=== PATIENT | female | born 1940 | race Caucasian/White ===

== ENCOUNTER 2017-10-13 15:04 | Emergency (ER) | payer MEDICARE ==
--- NOTE | 2017-10-13 15:24 | ER Document Report ---
ED General - General Chief Complaint: Edema Stated Complaint: SKIN PROBLEM Time Seen by Provider: 10/13/17 15:24 Mode of Arrival: Ambulatory Information source: Patient, Relative Notes: 77-year-old female with a history of COPD, previous lung cancer, dementia presents from home with her daughter who is concerned with a blister on her left lower extremity. Daughter states that they noticed this today. She denies any recent falls or injuries. Daughter denies any recent illnesses. Patient is on home oxygen but due to her dementia does not wear it as she should. Daughter has been in discussion with her primary care physician regarding long-term care in a long-term facility due to declining health and increasing dementia.Upon my exam patient is alert and oriented and appears comfortable. She denies any fever, chills, chest pain, shortness of breath, leg pain, recent falls. TRAVEL OUTSIDE OF THE [place] IN LAST 30 DAYS: No - HPI Onset: Just prior to arrival Onset/Duration: Sudden Quality of pain: No pain Associated symptoms: Shortness of breath - Chronic shortness of breath. denies : Fever Similar symptoms previously: No Recently seen / treated by doctor: Yes - Primary care physician Dr. Baez Past Medical History - Social History Smoking Status: Former Smoker Frequency of alcohol use: None Drug Abuse: None Lives with: Family Family History: Reviewed & Not Pertinent Patient has suicidal ideation: No Pulmonary Medical History: Reports: Hx COPD Neurological Medical History: Reports: Other - Dementia Malignancy Medical History: Reports: Hx Lung Cancer Review of Systems - Review of Systems Constitutional: denies: Fever, Weakness EENT: No symptoms reported Cardiovascular: denies: Chest pain, Palpitations Respiratory: Short of breath. denies: Cough Gastrointestinal: denies: Abdominal pain, Diarrhea Genitourinary: denies: Dysuria Skin: Other - Blister left lower extremity Neurological/Psychological: Dementia Physical Exam - Vital signs Vitals: Temp Pulse Resp BP Pulse Ox 97.9 F 94 24 H 145/77 H 82 L 10/13/17 15:11 10/13/17 15:11 10/13/17 15:11 10/13/17 15:11 10/13/17 15:11 Interpretation: Normal, Hypoxic - General General appearance: Appears well, Alert In distress: None - HEENT Head: Normocephalic, Atraumatic Eyes: Normal Extraocular movements intact: Yes Pupils: PERRL Mucous membranes: Dry - Respiratory Respiratory status: No respiratory distress Chest status: Nontender Breath sounds: Normal Chest palpation: Normal - Cardiovascular Rhythm: Regular Heart sounds: Normal auscultation Murmur: No Pulses: Normal: Radial, Dorsalis pedis Normal capillary refill: Yes - Extremities General upper extremity: Normal inspection, Nontender, Normal color, Normal ROM , Normal temperature General lower extremity: Normal inspection, Nontender, Normal color, Normal ROM , Normal temperature, Normal weight bearing, Other - 4 x 4 centimeter clear blister. No associated tenderness. Mild erythema of the lower extremities bilaterally. No warmth,No purulent discharge... No: Aleida's sign - Neurological Neuro grossly intact: Yes Cognition: Normal Orientation: AAOx4 Cong Coma Scale Eye Opening: Spontaneous Sayre Coma Scale Verbal: Oriented Sayre Coma Scale Motor: Obeys Commands Sayre Coma Scale Total: 15 Speech: Normal Cranial nerves: Normal Cerebellar coordination: Normal Motor strength normal: LUE, RUE, LLE, RLE Additional motor exam normals: Equal silver cleaner Sensory: Normal - Skin Skin Temperature: Warm Skin Moisture: Dry Skin Color: Normal Skin Turgor: Tenting Skin irregularity: Erythema, other - blister. negative: Decubitus ulcer Irregularity with: Scaling, Weeping. negative: Tenderness, Warmth Course - Re-evaluation Re-evalutation: 10/13/17 18:50 On reevaluation patient is resting comfortably. I did discuss findings of urinary tract infection and mildly Dehydration with the daughter and the patient. Patient will receive Bactrim prior to discharge. 10/13/17 22:13 77-year-old female with a history of COPD and dementia presents with her daughter who is concerned for a new blister on her left lower extremity. Upon arrival vitals were reviewed. Patient is hypoxic but not wearing her home oxygen. Patient does not appear toxic but she does appear mildly dehydrated. Patient's CODE STATUS was discussed and daughter states she is a DNR. Daughter also states that she has been in talks with the patient's primary care physician regarding goals of care and long-term care in a long-term facility. She has an upcoming appointment with a palliative care doctor regarding this. Daughter admits that the patient has poor p.o. intake. Findings include a urinalysis consistent with urinary tract infection. X-ray of the left lower extremity and chest x-ray were obtained showed no acute process. Blister of the left lower extremity is not hemorrhagic. There is no associated tenderness. There is no warmth. There are skin changes secondary to venous stasis. Patient received Bactrim during her ED course as well as IV fluids. Blister was dressed. Patient was discharged home in stable condition with a prescription for Bactrim and recommendations to the daughter to encourage p.o. fluids. Laboratory 10/13/17 10/13/17 17:00 18:14 Sodium 143.3 Potassium 4.3 Chloride 100 Carbon Dioxide 35 H Anion Gap 8 BUN 34 H Creatinine 0.77 Est GFR ( Amer) > 60 Est GFR (Non-Af Amer) > 60 Glucose 102 Calcium 11.0 H Urine Color VERONA Urine Appearance TURBID Urine pH 9.0 Ur Specific Darrow 1.018 Urine Protein >=500 H Urine Glucose (UA) NEGATIVE Urine Ketones 20 H Urine Blood NEGATIVE Urine Nitrite NEGATIVE Urine Bilirubin NEGATIVE Urine Urobilinogen NEGATIVE Ur Leukocyte Esterase MODERATE H Urine WBC (Auto) 4 Urine RBC (Auto) 32 Urine Bacteria (Auto) 1+ Squamous Epi Cells Auto 3 Urine Mucus (Auto) RARE Urine Ascorbic Acid NEGATIVE Chest X-Ray 10/13/17 15:46 IMPRESSION: 1. Small left pleural effusion with left basilar airspace opacity , may represent atelectasis or pneumonia. 2. Known right suprahilar mass. 3. Emphysema. Tibia/Fibula X-Ray 10/13/17 15:46 IMPRESSION: Diffuse soft tissue swelling. No radiographic evidence for acute fracture. Chondrocalcinosis at the left knee. - Vital Signs Vital signs: Temp Pulse Resp BP Pulse Ox 97.9 F 94 21 H 142/93 H 96 10/13/17 15:11 10/13/17 15:11 10/13/17 19:19 10/13/17 19:19 10/13/17 19:19 - Laboratory Result Diagrams: 10/13/17 17:00 Laboratory results interpreted by me: 10/13/17 10/13/17 17:00 18:14 Carbon Dioxide 35 H BUN 34 H Calcium 11.0 H Urine Protein >=500 H Urine Ketones 20 H Ur Leukocyte Esterase MODERATE H Discharge - Discharge Clinical Impression: UTI (urinary tract infection), Dehydration, COPD (chronic obstructive pulmonary disease), Hypoxia Condition: Fair Disposition: HOME, SELF-CARE Instructions: Dehydration ([facility]), Trimethoprim-Sulfa ([facility]), Urinary Tract Infection ([facility]) Prescriptions: Sulfamethoxazole/Trimethoprim [Bactrim Ds Tablet] 1 each PO BID 5 Days #10 tablet Referrals: HEATHER BAEZ MD [ACTIVE STAFF] - Follow up in 3-5 days (Follow-up urinary tract infection)
[2017-10-13] MEDS ORDERED: NORMAL SALINE 500 ML IV ONE (15:47)
[2017-10-13] MEDS ORDERED: IPRATROPIUM/ALBUTEROL 0.5-2.5 MG/3 ML AMPUL NEB ONE (15:47)
--- NOTE | 2017-10-13 16:53 | RADIOLOGY REPORT (SQ) ---
EXAM DESCRIPTION: TIBIA FIBULA LEFT COMPLETED DATE/TIME: 10/13/2017 4:33 pm REASON FOR STUDY: EDEMA. Redness. COMPARISON: None. NUMBER OF VIEWS: Two views. TECHNIQUE: Two radiographic images acquired of the left tibia and fibula to include the knee and ank le in at least one projection. LIMITATIONS: None. FINDINGS: MINERALIZATION: Osteopenia. BONES: No acute fracture or dislocation. Degenerative changes with chondrocalcinosis at the left kne e. SOFT TISSUES: There is diffuse soft tissue swelling. No radiopaque foreign body. IMPRESSION: Diffuse soft tissue swelling. No radiographic evidence for acute fracture. Chondrocalc inosis at the left knee. TECHNICAL DOCUMENTATION: JOB ID: [id number] 2010 [employer]- All Rights Reserved Reading location - IP/workstation name: [email or web address]
--- NOTE | 2017-10-13 16:59 | RADIOLOGY REPORT (SQ) ---
EXAM DESCRIPTION: CHEST PA/LAT COMPLETED DATE/TIME: 10/13/2017 4:33 pm REASON FOR STUDY: sob COMPARISON: CT chest performed at [facility] on 11/24/2015, 11/29/2016. EXAM PARAMETERS: NUMBER OF VIEWS: two views TECHNIQUE: Digital Frontal and Lateral radiographic views of the chest acquired. RADIATION DOSE: NA LIMITATIONS: none FINDINGS: LUNGS AND PLEURA: There is a small left pleural effusion with left basilar airspace opacit y. No pneumothorax. Hyperlucent lungs are suggestive of emphysema. MEDIASTINUM AND HILAR STRUCTURES: Known right suprahilar mass. HEART AND VASCULAR STRUCTURES: Heart normal size. No evidence for failure. BONES: No acute findings. HARDWARE: None in the chest. IMPRESSION: 1. Small left pleural effusion with left basilar airspace opacity, may represent atelec tasis or pneumonia. 2. Known right suprahilar mass. 3. Emphysema. TECHNICAL DOCUMENTATION: JOB ID: [id number] 2010 [id number]- All Rights Reserved Reading location - IP/workstation name: [email or web address]
[2017-10-13 17:34] LABS: ANION GAP 8 (5-19); BLOOD UREA NITROGEN 34 mg/dL (7-20); CARBON DIOXIDE 35 mmol/L (22-30); CHLORIDE 100 mmol/L (98-107); GLUCOSE 102 mg/dL (75-110); POTASSIUM 4.3 mmol/L (3.6-5.0); SODIUM 143.3 mmol/L (137-145)
[2017-10-13 18:38] LABS: APPEARANCE,URINE TURBID; BILIRUBIN,URINE NEGATIVE (NEGATIVE); COLOR,URINE AMBER; GLUCOSE, URINE NEGATIVE (NEGATIVE); KETONES,URINE 20 mg/dL (NEGATIVE); LEUKOCYTE ESTERASE,URINE MODERATE (NEGATIVE); NITRITE,URINE NEGATIVE (NEGATIVE); PROTEIN,URINE >=500 mg/dL (NEGATIVE); URINE SPECIFIC GRAVITY 1.018; UROBILINOGEN,URINE NEGATIVE mg/dL (<2.0)
[2017-10-13] MEDS ORDERED: SULFAMETHOXAZOLE/TRIMETHOPRIM 800-160 MG TABLET PO ONE (18:49)
[2017-10-13 19:42] VITALS: BP 143/90
== END 2017-10-13 19:42 | disposition home or self-care (01) ==
LOC: ER 15:04
DX: F03.90 Unspecified dementia, unspecified severity, without behavioral disturbance, psychotic disturbance, mood disturbance, and anxiety (principal); N39.0 Urinary tract infection, site not specified; E86.0 Dehydration; R09.02 Hypoxemia; L98.9 Disorder of the skin and subcutaneous tissue, unspecified; J44.9 Chronic obstructive pulmonary disease, unspecified
CPT/HCPCS: 94640; 99285; 36415; 80048; 81001; 71046; 73590; A9270 ×2; J7040; J7620

== ENCOUNTER 2017-10-15 15:26 | Inpatient (IN) | payer MEDICARE, MEDICAID ==
--- NOTE | 2017-10-15 15:49 | ER Document Report ---
ED Skin Rash/Insect Bite/Abscs - General Chief Complaint: Skin Sore(s) Stated Complaint: BLISTER UNDER EYE Time Seen by Provider: 10/15/17 15:39 Mode of Arrival: Medic Information source: Relative Notes: Patient is a 77-year-old female with COPD who presents to the ER from home where she lives with her daughter for weakness, not eating over the last 3-4 days. Patient has been on Bactrim for approximately 2 days per daughter for urinary tract infection, but daughter states that her urine still smells very strong. Patient also has blisters to the left lower leg that she was seen for here a couple days ago and now today blisters to the underneath of her eyes and her eyelids bilaterally. Patient has no history of congestive heart failure per daughter but does have a history of some mild swelling to her lower legs for "venous insufficiency" per daughter.. Patient is usually on 3 L of oxygen at home due to her COPD. Daughter states that the swelling to both feet is worse than usual TRAVEL OUTSIDE OF THE [place] IN LAST 30 DAYS: No - Related Data Allergies/Adverse Reactions: No Known Allergies Allergy (Verified 10/15/17 15:35) Past Medical History - General Information source: Patient - Social History Smoking Status: Unknown if Ever Smoked Family History: Reviewed & Not Pertinent Patient has suicidal ideation: No Patient has homicidal ideation: No Pulmonary Medical History: Reports: Hx COPD Renal/ Medical History: Denies: Hx Peritoneal Dialysis Malignancy Medical History: Reports: Hx Lung Cancer Past Surgical History: Reports: Hx Hysterectomy Review of Systems - Review of Systems Constitutional: No symptoms reported EENT: No symptoms reported Cardiovascular: No symptoms reported Respiratory: No symptoms reported Gastrointestinal: No symptoms reported Genitourinary: See HPI Female Genitourinary: No symptoms reported Musculoskeletal: No symptoms reported Skin: See HPI Hematologic/Lymphatic: No symptoms reported Neurological/Psychological: See HPI Physical Exam - Vital signs Vitals: Temp Pulse Resp BP Pulse Ox 98.2 F 105 H 20 136/73 H 93 10/15/17 15:34 10/15/17 15:34 10/15/17 15:34 10/15/17 15:34 10/15/17 15:34 - Notes Notes: PHYSICAL EXAMINATION: GENERAL: Elderly, demented, with lethargic appearing, but in no acute distress. HEAD: Atraumatic, normocephalic. EYES: Pupils equal round and reactive to light, extraocular movements intact, sclera anicteric, conjunctiva are normal. NECK: Normal range of motion, supple without lymphadenopathy LUNGS: CTAB and equal. No wheezes rales or rhonchi. HEART: Regular rate and rhythm without murmurs ABDOMEN: Soft, mild suprapubic tenderness. No guarding, no rebound BACK: no vertebral tenderness, normal ROM GI/: no CVA tenderness EXTREMITIES: Normal range of motion, 1+ pitting edema bilateral lower extremities. No cyanosis. NEUROLOGICAL: Patient does not cooperate, will not stay awake PSYCH: Will not stay awake, demented SKIN: Warm, Dry, normal turgor, darkened discoloration to bilateral lower extremities, large fluid-filled blister to the left dorsal lower extremity, small skin tear proximal to that Course - Re-evaluation Re-evalutation: 10/15/17 18:30 Pt was not altered at first, mentating normally and answering questions appropriately per myself and daughter. throughout the stay, pt became more lethargic and now Patient will not stay awake here although she has normal vital signs and is afebrile she has a large urinary tract infection with greater than 182 white blood cells and leukocytes. Patient also has a BNP of over 2000 with no history of heart failure. Daughter states that she has not been eating or drinking at home and is very tired, not wanting to stay awake which is unlike her. At this time patient was initiated with Dr. Lynne to be admitted. Awaiting callback from Dr. Collins for confirmation of admission. 10/15/17 19:12 10/15/17 19:31 Dr. Collins agrees to admit at this time. wants ABG. 10/16/17 20:44 - Vital Signs Vital signs: Temp Pulse Resp BP Pulse Ox 98.2 F 103 H 16 109/59 L 84 L 10/16/17 16:37 10/16/17 19:44 10/16/17 19:44 10/16/17 16:37 10/16/17 16:37 - Laboratory Result Diagrams: 10/16/17 04:40 10/16/17 04:40 Laboratory results interpreted by me: 10/15/17 10/15/17 10/15/17 15:59 15:59 15:59 RBC 6.30 H Hgb 18.5 H Hct 57.0 H RDW 15.2 H Seg Neutrophils % 80.5 H Lymphocytes % 9.5 L Carbon Dioxide 32 H BUN 43 H Calcium 11.4 H NT-Pro-B Natriuret Pep 2070 H Total Protein 5.9 L Urine Protein Urine Ketones Urine Blood Urine Urobilinogen Ur Leukocyte Esterase 10/15/17 17:00 RBC Hgb Hct RDW Seg Neutrophils % Lymphocytes % Carbon Dioxide BUN Calcium NT-Pro-B Natriuret Pep Total Protein Urine Protein >=500 H Urine Ketones 20 H Urine Blood MODERATE H Urine Urobilinogen 2.0 H Ur Leukocyte Esterase LARGE H Discharge - Discharge Clinical Impression: UTI (urinary tract infection), Dehydration CHF (congestive heart failure) Qualifiers: Heart failure type: unspecified Heart failure chronicity: acute Qualified Code( s): I50.9 - Heart failure, unspecified Condition: Stable Disposition: ADMITTED INPATIENT Admitting Provider: Hospitalist - [facility] Unit Admitted: Telemetry
[2017-10-15 16:13] LABS: ABSOLUTE BASOPHILS # (AUTO) 0.1 10^3/uL (0.0-0.2); ABSOLUTE LYMPHOCYTES (AUTO) 0.8 10^3/uL (0.5-4.7); ABSOLUTE MONOCYTES (AUTO) 0.8 10^3/uL (0.1-1.4); ABSOLUTE NEUT (AUTO) 6.9 10^3/uL (1.7-8.2); BASOPHILS % (AUTO) 0.7 % (0-2); HEMOGLOBIN 18.5 g/dL (12.0-15.5); LYMPHOCYTES % (AUTO) 9.5 % (13-45); MEAN CORPUSCULAR HEMOGLOBIN 29.4 pg (27.0-33.4); MEAN CORPUSCULAR HGB CONC 32.5 g/dL (32.0-36.0); MEAN CORPUSCULAR VOLUME 91 fl (80-97); MONOCYTES % (AUTO) 9.3 % (3-13); PLATELET COUNT 183 10^3/uL (150-450); RED CELL DISTRIBUTION WIDTH 15.2 % (11.5-14.0); SEGMENTED NEUTROPHILS % (AUTO) 80.5 % (42-78); TOTAL CELLS COUNTED % (AUTO) 100 %; WHITE BLOOD COUNT 8.6 10^3/uL (4.0-10.5)
[2017-10-15 16:31] LABS: ALANINE AMINOTRANSFERASE 37 U/L (9-52); ALBUMIN 3.6 g/dL (3.5-5.0); ALKALINE PHOSPHATASE 65 U/L (38-126); ANION GAP 9 (5-19); ASPARTATE AMINO TRANSFERASE 23 U/L (14-36); BILIRUBIN,DIRECT 0.4 mg/dL (0.0-0.4); BILIRUBIN,TOTAL 0.7 mg/dL (0.2-1.3); BLOOD UREA NITROGEN 43 mg/dL (7-20); CALCIUM 11.4 mg/dL (8.4-10.2); CARBON DIOXIDE 32 mmol/L (22-30); CHLORIDE 103 mmol/L (98-107); GLUCOSE 87 mg/dL (75-110); POTASSIUM 4.8 mmol/L (3.6-5.0); SODIUM 144.4 mmol/L (137-145); TOTAL PROTEIN 5.9 g/dL (6.3-8.2)
--- NOTE | 2017-10-15 16:31 | RADIOLOGY REPORT (SQ) ---
EXAM DESCRIPTION: CHEST SINGLE VIEW COMPLETED DATE/TIME: 10/15/2017 4:07 pm REASON FOR STUDY: chf? sob COMPARISON: 10/13/2017 EXAM PARAMETERS: NUMBER OF VIEWS: One view. TECHNIQUE: Single frontal radiographic view of the chest acquired. RADIATION DOSE: NA LIMITATIONS: None. FINDINGS: LUNGS AND PLEURA: The lungs are hyperexpanded. Chronic changes seen in the lung bases. S mall pleural effusions are present. There is a known suprahilar mass on the right. MEDIASTINUM AND HILAR STRUCTURES: No masses. Contour normal. HEART AND VASCULAR STRUCTURES: Heart normal in size. Normal vasculature. BONES: No acute findings. HARDWARE: None in the chest. OTHER: No other significant finding. IMPRESSION: Lung changes with a known right suprahilar mass and with small bilateral pleural effusio ns. No parminder CHF TECHNICAL DOCUMENTATION: JOB ID: [id number] [employer]- All Rights Reserved Reading location - IP/workstation name: [email or web address]
[2017-10-15 17:42] LABS: APPEARANCE,URINE TURBID; BILIRUBIN,URINE NEGATIVE (NEGATIVE); COLOR,URINE YELLOW; GLUCOSE, URINE NEGATIVE (NEGATIVE); KETONES,URINE 20 mg/dL (NEGATIVE); LEUKOCYTE ESTERASE,URINE LARGE (NEGATIVE); NITRITE,URINE NEGATIVE (NEGATIVE); PROTEIN,URINE >=500 mg/dL (NEGATIVE); URINE SPECIFIC GRAVITY 1.015
[2017-10-15] MEDS ORDERED: CIPROFLOXACIN HCL 500 MG TABLET PO ONE (18:13)
[2017-10-15] MEDS ORDERED: SILVER SULFADIAZINE 1% CREAM 400 GM TP ONE (18:13)
[2017-10-15] MEDS ORDERED: FUROSEMIDE 20 MG TABLET PO ONE (18:20)
[2017-10-15] MEDS ORDERED: CEFTRIAXONE INJ 1000 MG VIAL IV ONE (18:30)
[2017-10-15] MEDS ORDERED: NORMAL SALINE 1000 ML 500 ML IV ONE (18:34)
[2017-10-15] MEDS ORDERED: IPRATROPIUM/ALBUTEROL 0.5-2.5 MG/3 ML AMPUL NEB PRN (19:30)
[2017-10-15] MEDS ORDERED: MAG HYDROX/AL HYDROX/SIMETH SUSP 30 ML UDCUP PO PRN (19:30)
[2017-10-15] MEDS ORDERED: ACETAMINOPHEN 325 MG TABLET PO PRN (19:30)
[2017-10-15] MEDS ORDERED: ZOLEDRONIC ACID 5 MG/100 ML BOTTLE IV ONE (23:14)
[2017-10-15 23:19] LABS: ARTERIAL BLOOD BASE EXCESS -2.5 mmol/L; ARTERIAL BLOOD H2CO3 2.95 mmol/L (1.05-1.35); ARTERIAL BLOOD HCO3 30.9 mmol/L (20-26); ARTERIAL BLOOD O2 SATURATION 92.2 % (94-98); ARTERIAL BLOOD PO2 85.9 mmHg (80-100); ARTERIAL BLOOD TOTAL CO2 33.9 mmol/L (21-25)
[2017-10-15 23:24] LABS: ARTERIAL BLOOD PH 7.12 (7.35-7.45)
[2017-10-15 23:25] LABS: ARTERIAL BLOOD FIO2 4L
[2017-10-15] MEDS ORDERED: ZOLEDRONIC ACID/MANNITOL/WATER 4 MG/100 ML INFUS..BTL IV ONE ×2 (23:30→23:48)
[2017-10-16] MEDS: NORMAL SALINE 1000 ML 1,000 ML IV PRN ×2 (00:21→06:35)
[2017-10-16] MEDS: HEPARIN SOD (PORCINE) 5,000 UNIT/ML 1 ML SYRINGE SUBCUT SCH ×4 (00:23→21:52)
[2017-10-16] MEDS: IPRATROPIUM/ALBUTEROL 0.5-2.5 MG/3 ML AMPUL NEB SCH ×3 (00:37→19:44)
--- NOTE | 2017-10-16 04:35 | PDOC H&P ---
History of Present Illness Admission Date/PCP: 10/15/17 20:01 Patient complains of: Altered mental status History of Present Illness: JOSE WINKLRE is a 77 year old female with a past medical history of remote lung cancer, COPD, venous stasis, dementia and recent UTI receiving Bactrim. Patient presents with 12 hours of periorbital edema after the patient is found by her daughter to be seated on a chair leaning forward with her head down for hours. Patient was seen in the emergency room 2 days ago for altered mental status of a 4 day duration. Daughter states her mother will awaken for seconds only returning to a sleeping state. In the emergency room she is found to have an elevated bicarb suggesting respiratory acidosis, hypercalcemia, and pyuria without leukocytosis. A discussion with the ER provider request arterial blood gas to evaluate for hypercapnia and BiPAP. The patient is found on the floor completely and utterly unresponsive, BiPAP was initiated notable for a PCO2 of 98. Prolonged discussion with the patient's daughter regarding poor prognosis results in DNR status. Daughter denies fever, nausea vomiting or diarrhea. Past Medical History Cardiac Medical History: Reports: Hypertension Pulmonary Medical History: Reports: Chronic Obstructive Pulmonary Disease (COPD) EENT Medical History: Reports: None Neurological Medical History: Reports: None Endocrine Medical History: Reports: Other - Hypercalcemia Renal/ Medical History: Reports: None Malignancy Medical History: Reports: Lung Cancer - Unclear current status GI Medical History: Reports: None Musculoskeltal Medical History: Reports: Other - Patient has not walked for days otherwise requires hand-held assist 2 Skin Medical History: Reports: Other - Bilateral venous stasis Psychiatric Medical History: Reports: Dementia Traumatic Medical History: Reports: None Hematology: Reports: None Infectious Medical History: Reports: None Past Surgical History Past Surgical History: Reports: Hysterectomy Social History Information Source: Relative, POA - Power of Tutor - Daughter, [facility] Records Lives with: Family Smoking Status: Former Smoker Frequency of Alcohol Use: None Hx Recreational Drug Use: No Drugs: None Hx Prescription Drug Abuse: No - Advance Directive Resuscitation Status: Do Not Resuscitate Family History Family History: COPD, Hypertension Parental Family History Reviewed: Yes Children Family History Reviewed: Yes Sibling(s) Family History Reviewed.: Yes Medication/Allergy Home Medications: Albuterol Sulfate [Ventolin HFA MDI 18 GM] 2 puff IH Q6HP PRN 10/15/17 Cetirizine HCl [Zyrtec 10 mg Tablet] 10 mg PO DAILY 10/15/17 Donepezil HCl [Aricept] 10 mg PO [id number] 10/15/17 Ibuprofen [Motrin 400 mg Tablet] 400 mg PO Q8HP PRN 10/15/17 Memantine HCl [Namenda 10 mg Tablet] 10 mg PO BID 10/15/17 Oxybutynin Chloride [Ditropan 5 mg Tablet] 5 mg PO BID 10/15/17 Simvastatin [Zocor 20 mg Tablet] 20 mg PO QPM 10/15/17 Allergies/Adverse Reactions: No Known Allergies Allergy (Verified 10/15/17 15:35) Review of Systems ROS unobtainable: Due to mental status - Unobtainable Physical Exam Vital Signs: Temp Pulse Resp BP Pulse Ox 97.4 F 94 12 104/58 L 94 10/16/17 03:32 10/16/17 03:32 10/16/17 03:32 10/16/17 03:32 10/16/17 03:32 General appearance: PRESENT: disheveled, severe distress, other - Unresponsive to noxious stimuli, temporal wasting Head exam: PRESENT: atraumatic, normocephalic Eye exam: PRESENT: periorbital swelling, PERRLA Ear exam: PRESENT: normal external ear exam Mouth exam: PRESENT: moist, tongue midline Neck exam: ABSENT: carotid bruit, JVD, lymphadenopathy, thyromegaly Respiratory exam: PRESENT: clear to auscultation cayden, decreased breath sounds, prolonged expiratory phas, symmetrical, other - Poor effort. ABSENT: rales, rhonchi, wheezes Cardiovascular exam: PRESENT: RRR. ABSENT: diastolic murmur, rubs, systolic murmur Pulses: PRESENT: normal dorsalis pedis pul Vascular exam: PRESENT: normal capillary refill GI/Abdominal exam: PRESENT: normal bowel sounds, soft. ABSENT: distended, guarding, mass, organolmegaly, rebound, tenderness Rectal exam: PRESENT: deferred Extremities exam: PRESENT: +1 edema, other - Bilateral erythema Neurological exam: PRESENT: altered. ABSENT: alert, awake, oriented to person, oriented to place, CN II-XII grossly intact Skin exam: PRESENT: dry, erythema - Lower extremity edema with circumferential erythema, intact, warm. ABSENT: cyanosis, rash Results Laboratory Results: 10/15/17 23:05 Carbonic Acid 2.95 H HCO3/H2CO3 Ratio 10:1 ABG pH 7.12 L* ABG pCO2 98.0 H* ABG pO2 85.9 ABG HCO3 30.9 H ABG O2 Saturation 92.2 L ABG Base Excess -2.5 FiO2 4L Impressions: Chest X-Ray 10/15/17 15:49 IMPRESSION: Lung changes with a known right suprahilar mass and with small bilateral pleural effusions. No parminder CHF Assessment & Plan - Diagnosis (1) Encephalopathy acute Is this a current diagnosis for this admission?: Yes Plan: Likely hypercapnia possible hypercalcemic component. BiPAP initiated, supportive measures (2) Hypercalcemia Is this a current diagnosis for this admission?: Yes Plan: Likely secondary to hypercalcemia of malignancy, bisphosphonate, normal saline challenge and loop diuretic initiated. Follow-up chemistry (4) UTI (urinary tract infection) Is this a current diagnosis for this admission?: Yes Plan: Given lack of fever leukocytosis most likely colonization, empiric Rocephin initiated, follow-up CBC and urine culture (5) Dementia Is this a current diagnosis for this admission?: Yes Plan: Supportive care, discharge planning consult for placement - Time Time Spent: 50 to 70 Minutes - Inpatient Certification Medical Necessity: Need Close Monitoring Due to Risk of Patient Decompensation
[2017-10-16 05:43] LABS: ABSOLUTE LYMPHOCYTES (AUTO) 0.4 10^3/uL (0.5-4.7); ABSOLUTE MONOCYTES (AUTO) 0.6 10^3/uL (0.1-1.4); ABSOLUTE NEUT (AUTO) 5.8 10^3/uL (1.7-8.2); BASOPHILS % (AUTO) 0.3 % (0-2); HEMATOCRIT 50.4 % (36.0-47.0); HEMOGLOBIN 16.6 g/dL (12.0-15.5); LYMPHOCYTES % (AUTO) 6.5 % (13-45); MEAN CORPUSCULAR HEMOGLOBIN 30.3 pg (27.0-33.4); MEAN CORPUSCULAR HGB CONC 32.9 g/dL (32.0-36.0); MEAN CORPUSCULAR VOLUME 92 fl (80-97); MONOCYTES % (AUTO) 9.3 % (3-13); PLATELET COUNT 147 10^3/uL (150-450); RED BLOOD COUNT 5.48 10^6/uL (3.72-5.28); RED CELL DISTRIBUTION WIDTH 15.4 % (11.5-14.0); SEGMENTED NEUTROPHILS % (AUTO) 83.9 % (42-78); TOTAL CELLS COUNTED % (AUTO) 100 %; WHITE BLOOD COUNT 6.9 10^3/uL (4.0-10.5)
[2017-10-16 06:03] LABS: ARTERIAL BLOOD HCO3 27.3 mmol/L (20-26); ARTERIAL BLOOD PO2 85.5 mmHg (80-100); ARTERIAL BLOOD TOTAL CO2 29.7 mmol/L (21-25)
[2017-10-16 06:08] LABS: ARTERIAL BLOOD FIO2 65%; ARTERIAL BLOOD PCO2 79.7 mmHg (35-45); ARTERIAL BLOOD PH 7.15 (7.35-7.45)
[2017-10-16 06:19] LABS: ANION GAP 9 (5-19); BLOOD UREA NITROGEN 48 mg/dL (7-20); CALCIUM 10.6 mg/dL (8.4-10.2); CARBON DIOXIDE 25 mmol/L (22-30); CHLORIDE 111 mmol/L (98-107); GLUCOSE 80 mg/dL (75-110); POTASSIUM 4.9 mmol/L (3.6-5.0); SODIUM 144.7 mmol/L (137-145)
[2017-10-16 13:38] LABS: ARTERIAL BLOOD H2CO3 4.08 mmol/L (1.05-1.35); ARTERIAL BLOOD HCO3 27.1 mmol/L (20-26); ARTERIAL BLOOD O2 SATURATION 84.3 % (94-98); ARTERIAL BLOOD PO2 80.1 mmHg (80-100); ARTERIAL BLOOD TOTAL CO2 31.3 mmol/L (21-25)
[2017-10-16 13:41] LABS: ARTERIAL BLOOD FIO2 70%
[2017-10-16 13:42] LABS: ARTERIAL BLOOD PCO2 135.5 mmHg (35-45); ARTERIAL BLOOD PH 6.92 (7.35-7.45)
[2017-10-16] MEDS ORDERED: LEVALBUTEROL HCL NEB 0.63 MG/3 ML AMPUL NEB PRN (14:48)
[2017-10-16] MEDS ORDERED: IPRATROPIUM/ALBUTEROL 0.5-2.5 MG/3 ML AMPUL NEB ONE (15:00)
[2017-10-16 16:04] LABS: ARTERIAL BLOOD BASE EXCESS -8.1 mmol/L; ARTERIAL BLOOD H2CO3 3.71 mmol/L (1.05-1.35); ARTERIAL BLOOD HCO3 28.1 mmol/L (20-26); ARTERIAL BLOOD O2 SATURATION 92.8 % (94-98); ARTERIAL BLOOD PO2 101.6 mmHg (80-100); ARTERIAL BLOOD TOTAL CO2 31.8 mmol/L (21-25)
[2017-10-16 16:05] LABS: ARTERIAL BLOOD FIO2 80%
[2017-10-16 16:07] LABS: ARTERIAL BLOOD PCO2 123.3 mmHg (35-45); ARTERIAL BLOOD PH 6.98 (7.35-7.45)
--- NOTE | 2017-10-16 16:28 | PDOC CONSULTATION ---
Consultation Consult Date: 10/16/17 Attending physician:: CHARLIE HUNTER Consult reason:: acute/chronic resp failure History of Present Illness Admission Date/PCP: 10/15/17 20:01 History of Present Illness: JOSE WINKLER is a 77 year old female with a past medical history of remote lung cancer, COPD, venous stasis, dementia and recent UTI receiving Bactrim.. Patient was seen in the emergency room 2 days ago for altered mental status of a 4 day duration. She underwent arterial blood gas to evaluate for hypercapnia, hypoxia and need for BiPAP. The patient is found on the floor completely and utterly unresponsive, BiPAP was initiated notable for a PCO2 of 98. Prolonged discussion with the patient's daughter regarding poor prognosis results in DNR status. Past Medical History Cardiac Medical History: Reports: Hypertension Pulmonary Medical History: Reports: Chronic Obstructive Pulmonary Disease (COPD) EENT Medical History: Reports: None Neurological Medical History: Reports: None Endocrine Medical History: Reports: Other - Hypercalcemia Renal/ Medical History: Reports: None Malignancy Medical History: Reports: Lung Cancer - Unclear current status GI Medical History: Reports: None Musculoskeltal Medical History: Reports: Other - Patient has not walked for days otherwise requires hand-held assist 2 Skin Medical History: Reports: Other - Bilateral venous stasis Psychiatric Medical History: Reports: Dementia Traumatic Medical History: Reports: None Hematology: Reports: None Infectious Medical History: Reports: None Past Surgical History Past Surgical History: Reports: Hysterectomy Social History Lives with: Family Smoking Status: Former Smoker Frequency of Alcohol Use: None Hx Recreational Drug Use: No Drugs: None Hx Prescription Drug Abuse: No - Advance Directive Resuscitation Status: Do Not Resuscitate Family History Family History: COPD, Hypertension Parental Family History Reviewed: No Children Family History Reviewed: No Sibling(s) Family History Reviewed.: No Medication/Allergy Home Medications: Albuterol Sulfate [Ventolin HFA MDI 18 GM] 2 puff IH Q6HP PRN 10/15/17 Cetirizine HCl [Zyrtec 10 mg Tablet] 10 mg PO DAILY 10/15/17 Donepezil HCl [Aricept] 10 mg PO [id number] 10/15/17 Ibuprofen [Motrin 400 mg Tablet] 400 mg PO Q8HP PRN 10/15/17 Memantine HCl [Namenda 10 mg Tablet] 10 mg PO BID 10/15/17 Oxybutynin Chloride [Ditropan 5 mg Tablet] 5 mg PO BID 10/15/17 Simvastatin [Zocor 20 mg Tablet] 20 mg PO QPM 10/15/17 Allergies/Adverse Reactions: No Known Allergies Allergy (Verified 10/15/17 15:35) Review of Systems ROS unobtainable: Due to mental status Physical Exam Vital Signs: Temp Pulse Resp BP Pulse Ox 97.4 F 97 17 92/59 L 86 L 10/16/17 11:48 10/16/17 15:00 10/16/17 15:00 10/16/17 11:48 10/16/17 11:48 Intake & Output 10/15/17 10/16/17 10/17/17 06:59 06:59 06:59 Intake Total 1000 Output Total 300 Balance 700 Weight 68.3 kg General appearance: PRESENT: no acute distress, disheveled, thin. ABSENT: cooperative Head exam: PRESENT: atraumatic, normocephalic Eye exam: PRESENT: conjunctiva pale. ABSENT: EOMI, nystagmus, periorbital swelling, PERRLA, scleral icterus Mouth exam: PRESENT: dry mucosa, neck supple, tongue midline Neck exam: ABSENT: carotid bruit, JVD, lymphadenopathy, thyromegaly, tracheal deviation, tracheostomy Respiratory exam: PRESENT: decreased breath sounds, prolonged expiratory phas, rhonchi, symmetrical, unlabored. ABSENT: retraction, stridor, tachypnea Cardiovascular exam: PRESENT: RRR, +S1, +S2 Pulses: PRESENT: normal radial pulses GI/Abdominal exam: PRESENT: diminished bowel sounds, soft Extremities exam: ABSENT: clubbing, pedal edema Musculoskeletal exam: ABSENT: ambulatory, deformity, dislocation Neurological exam: ABSENT: awake, oriented to person Skin exam: PRESENT: dry, warm Results Laboratory Results: 10/16/17 04:40 10/16/17 04:40 10/15/17 10/16/17 10/16/17 23:05 04:40 04:40 WBC 6.9 RBC 5.48 H Hgb 16.6 H Hct 50.4 H MCV 92 MCH 30.3 MCHC 32.9 RDW 15.4 H Plt Count 147 L Seg Neutrophils % 83.9 H Lymphocytes % 6.5 L Monocytes % 9.3 Eosinophils % 0.0 Basophils % 0.3 Absolute Neutrophils 5.8 Absolute Lymphocytes 0.4 L Absolute Monocytes 0.6 Absolute Eosinophils 0.0 Absolute Basophils 0.0 Carbonic Acid 2.95 H HCO3/H2CO3 Ratio 10:1 ABG pH 7.12 L* ABG pCO2 98.0 H* ABG pO2 85.9 ABG HCO3 30.9 H ABG O2 Saturation 92.2 L ABG Base Excess -2.5 FiO2 4L Sodium 144.7 Potassium 4.9 Chloride 111 H Carbon Dioxide 25 Anion Gap 9 BUN 48 H Creatinine 0.84 Est GFR ( Amer) > 60 Est GFR (Non-Af Amer) > 60 Glucose 80 Calcium 10.6 H 10/16/17 10/16/17 10/16/17 05:45 12:25 13:13 WBC RBC Hgb Hct MCV MCH MCHC RDW Plt Count Seg Neutrophils % Lymphocytes % Monocytes % Eosinophils % Basophils % Absolute Neutrophils Absolute Lymphocytes Absolute Monocytes Absolute Eosinophils Absolute Basophils Carbonic Acid 2.40 H Cancelled 4.08 H HCO3/H2CO3 Ratio 11:1 Cancelled 6:1 ABG pH 7.15 L* Cancelled 6.92 L* ABG pCO2 79.7 H* Cancelled 135.5 H* ABG pO2 85.5 Cancelled 80.1 ABG HCO3 27.3 H Cancelled 27.1 H ABG O2 Saturation 93.0 L Cancelled 84.3 L ABG Base Excess -4.0 Cancelled -10.0 FiO2 65% Cancelled 70% Sodium Potassium Chloride Carbon Dioxide Anion Gap BUN Creatinine Est GFR ( Amer) Est GFR (Non-Af Amer) Glucose Calcium 10/16/17 15:10 WBC RBC Hgb Hct MCV MCH MCHC RDW Plt Count Seg Neutrophils % Lymphocytes % Monocytes % Eosinophils % Basophils % Absolute Neutrophils Absolute Lymphocytes Absolute Monocytes Absolute Eosinophils Absolute Basophils Carbonic Acid 3.71 H HCO3/H2CO3 Ratio 7:1 ABG pH 6.98 L* ABG pCO2 123.3 H* ABG pO2 101.6 H ABG HCO3 28.1 H ABG O2 Saturation 92.8 L ABG Base Excess -8.1 FiO2 80% Sodium Potassium Chloride Carbon Dioxide Anion Gap BUN Creatinine Est GFR ( Amer) Est GFR (Non-Af Amer) Glucose Calcium Impressions: Chest X-Ray 10/15/17 15:49 IMPRESSION: Lung changes with a known right suprahilar mass and with small bilateral pleural effusions. No parminder CHF Assessment & Plan - Diagnosis (1) Acute and chronic respiratory failure Qualifiers: Respiratory failure complication: hypoxia and hypercapnia Qualified Code(s) : J96.21 - Acute and chronic respiratory failure with hypoxia; J96.22 - Acute and chronic respiratory failure with hypercapnia; J96.22 - Acute and chronic respiratory failure with hypercapnia; J96.22 - Acute and chronic respiratory failure with hypercapnia Is this a current diagnosis for this admission?: Yes Plan: Profoundly acidotic and hypercapnic minimal response to noninvasive positive pressure ventilation (3) CHF (congestive heart failure) Qualifiers: Heart failure type: unspecified Heart failure chronicity: acute Qualified Code(s): I50.9 - Heart failure, unspecified Is this a current diagnosis for this admission?: Yes (4) Dementia Is this a current diagnosis for this admission?: Yes (5) COPD (chronic obstructive pulmonary disease) Is this a current diagnosis for this admission?: Yes Plan: Continue current bronchodilator therapy Generic Name Dose Route Start Last Admin Trade Name Freq PRN Reason Stop Dose Admin Albuterol/Ipratropium 3 ml 10/16/17 20:00 Duoneb 3 Ml Ampul NEB 11/15/17 19:59 RTQ6 [id number] Levalbuterol HCl 0.63 mg 10/16/17 14:48 Xopenex Neb 0.63 Mg/3 Ml Ampul NEB 11/15/17 14:47 [id number] PRN SHORTNESS OF BREATH
--- NOTE | 2017-10-16 16:42 | RADIOLOGY REPORT (SQ) ---
EXAM DESCRIPTION: KUB/ABDOMEN (SINGLE VIEW) COMPLETED DATE/TIME: 10/16/2017 4:34 pm REASON FOR STUDY: NGT placement verification COMPARISON: None. NUMBER OF VIEWS: 3 images were obtained. TECHNIQUE: Supine radiographic images of the abdomen acquired. LIMITATIONS: None. FINDINGS: BOWEL GAS PATTERN: Normal bowel gas pattern. No dilated loops. CALCIFICATIONS: No suspicious calcifications. SOFT TISSUES: No gross mass or suggestion of organomegaly. HARDWARE: On the initial images, the NG tube was doubled back upon itself in the distal esophagus. O n the final image the NG tube can be seen in the stomach. BONES: No acute fracture. No worrisome bone lesions. OTHER: No other significant finding. IMPRESSION: NG tube placement. TECHNICAL DOCUMENTATION: JOB ID: [id number] [employer]- All Rights Reserved Reading location - IP/workstation name: [email or web address]
--- NOTE | 2017-10-16 17:11 | PDOC PROGRESS REPORT ---
Subjective Progress Note for:: 10/16/17 Subjective:: Patient was seen 3 times this morning. Nurses first call was that patient was not responsive requested for an ABG and was at bedside of patient. Patient's daughter was contacted and she returned back to the hospital where we had a conversation about patient's condition. Daughter reports that she wants to continue with DNR because patient does not want to be intubated. Daughter also requested that we do everything possible to keep her alive until her grandson arrives from [place]. Reason For Visit: HYPERCALCEMIA, UTI, COPD EXACERBATION, Physical Exam Vital Signs: Temp Pulse Resp BP Pulse Ox 97.4 F 97 17 92/59 L 86 L 10/16/17 11:48 10/16/17 15:00 10/16/17 15:00 10/16/17 11:48 10/16/17 11:48 Intake & Output 10/15/17 10/16/17 10/17/17 06:59 06:59 06:59 Intake Total 1000 Output Total 300 Balance 700 Weight 68.3 kg General appearance: PRESENT: thin, well-developed Head exam: PRESENT: atraumatic, normocephalic Eye exam: PRESENT: other - eyes closed. ABSENT: scleral icterus Neck exam: ABSENT: carotid bruit, JVD, lymphadenopathy, thyromegaly Respiratory exam: PRESENT: other - +prolonged exp phase, BIPAP in place Cardiovascular exam: PRESENT: RRR. ABSENT: diastolic murmur, rubs, systolic murmur Pulses: PRESENT: normal dorsalis pedis pul GI/Abdominal exam: PRESENT: normal bowel sounds, soft. ABSENT: distended, guarding, mass, organolmegaly, rebound, tenderness Rectal exam: PRESENT: deferred Neurological exam: PRESENT: other - Pt not responding to painful stimulation Skin exam: PRESENT: dry, intact, warm. ABSENT: cyanosis, rash Results Laboratory Results: 10/16/17 04:40 10/16/17 04:40 10/15/17 10/16/17 10/16/17 23:05 04:40 04:40 WBC 6.9 RBC 5.48 H Hgb 16.6 H Hct 50.4 H MCV 92 MCH 30.3 MCHC 32.9 RDW 15.4 H Plt Count 147 L Seg Neutrophils % 83.9 H Lymphocytes % 6.5 L Monocytes % 9.3 Eosinophils % 0.0 Basophils % 0.3 Absolute Neutrophils 5.8 Absolute Lymphocytes 0.4 L Absolute Monocytes 0.6 Absolute Eosinophils 0.0 Absolute Basophils 0.0 Carbonic Acid 2.95 H HCO3/H2CO3 Ratio 10:1 ABG pH 7.12 L* ABG pCO2 98.0 H* ABG pO2 85.9 ABG HCO3 30.9 H ABG O2 Saturation 92.2 L ABG Base Excess -2.5 FiO2 4L Sodium 144.7 Potassium 4.9 Chloride 111 H Carbon Dioxide 25 Anion Gap 9 BUN 48 H Creatinine 0.84 Est GFR ( Amer) > 60 Est GFR (Non-Af Amer) > 60 Glucose 80 Calcium 10.6 H 10/16/17 10/16/17 10/16/17 05:45 12:25 13:13 WBC RBC Hgb Hct MCV MCH MCHC RDW Plt Count Seg Neutrophils % Lymphocytes % Monocytes % Eosinophils % Basophils % Absolute Neutrophils Absolute Lymphocytes Absolute Monocytes Absolute Eosinophils Absolute Basophils Carbonic Acid 2.40 H Cancelled 4.08 H HCO3/H2CO3 Ratio 11:1 Cancelled 6:1 ABG pH 7.15 L* Cancelled 6.92 L* ABG pCO2 79.7 H* Cancelled 135.5 H* ABG pO2 85.5 Cancelled 80.1 ABG HCO3 27.3 H Cancelled 27.1 H ABG O2 Saturation 93.0 L Cancelled 84.3 L ABG Base Excess -4.0 Cancelled -10.0 FiO2 65% Cancelled 70% Sodium Potassium Chloride Carbon Dioxide Anion Gap BUN Creatinine Est GFR ( Amer) Est GFR (Non-Af Amer) Glucose Calcium 10/16/17 15:10 WBC RBC Hgb Hct MCV MCH MCHC RDW Plt Count Seg Neutrophils % Lymphocytes % Monocytes % Eosinophils % Basophils % Absolute Neutrophils Absolute Lymphocytes Absolute Monocytes Absolute Eosinophils Absolute Basophils Carbonic Acid 3.71 H HCO3/H2CO3 Ratio 7:1 ABG pH 6.98 L* ABG pCO2 123.3 H* ABG pO2 101.6 H ABG HCO3 28.1 H ABG O2 Saturation 92.8 L ABG Base Excess -8.1 FiO2 80% Sodium Potassium Chloride Carbon Dioxide Anion Gap BUN Creatinine Est GFR ( Amer) Est GFR (Non-Af Amer) Glucose Calcium Impressions: Chest X-Ray 10/15/17 15:49 IMPRESSION: Lung changes with a known right suprahilar mass and with small bilateral pleural effusions. No parminder CHF KUB X-Ray 10/16/17 00:00 IMPRESSION: NG tube placement. Assessment & Plan - Diagnosis (1) Acute and chronic respiratory failure Qualifiers: Respiratory failure complication: hypoxia and hypercapnia Qualified Code(s) : J96.21 - Acute and chronic respiratory failure with hypoxia; J96.22 - Acute and chronic respiratory failure with hypercapnia; J96.22 - Acute and chronic respiratory failure with hypercapnia; J96.22 - Acute and chronic respiratory failure with hypercapnia Is this a current diagnosis for this admission?: Yes Plan: Secondary to CO2 narcosis: Pulmonary has been consulted. Patient's BiPAP settings were adjusted. Appreciate pulmonary's assistance. Patient will remain DNR daughter states that patient does not want to be intubated. (2) Dementia Is this a current diagnosis for this admission?: Yes Plan: Supportive care (3) Encephalopathy acute Is this a current diagnosis for this admission?: Yes Plan: Secondary to CO2 Narcosis: BIPAP in place. Pulmonary following pt. (4) Hypercalcemia Is this a current diagnosis for this admission?: Yes Plan: Will continue to monitor. (5) COPD (chronic obstructive pulmonary disease) Is this a current diagnosis for this admission?: Yes Plan: Will continue Duonebs and add steroids. - Time Time Spent with patient: 25-34 minutes - Patient was evaluated 3 times and spoke with family about patient's condition. Nocturnal physician admitted patient this morning. Family states that they want pt to be DNR. Appreciate Dr. Encinas.
[2017-10-16] MEDS ORDERED: PHARMACY COMMUNICATION ORDER MC NR (17:15)
[2017-10-16] MEDS ORDERED: ACETAMINOPHEN 325 MG TABLET NG PRN (17:30)
[2017-10-16] MEDS ORDERED: MAG HYDROX/AL HYDROX/SIMETH SUSP 30 ML UDCUP NG PRN (17:30)
[2017-10-16] MEDS ORDERED: CEFTRIAXONE 1 GM/D5W RTU 1 GM/50 ML RTUPB IV SCH (18:00)
[2017-10-16] MEDS: AMPICILLIN SODIUM/SULBACTAM NA 3 GM in NORMAL SALINE 100 ML IV SCH ×2 (18:50→23:29)
[2017-10-16 21:17] LABS: ARTERIAL BLOOD BASE EXCESS -4.7 mmol/L; ARTERIAL BLOOD H2CO3 1.89 mmol/L (1.05-1.35); ARTERIAL BLOOD HCO3 24.6 mmol/L (20-26); ARTERIAL BLOOD O2 SATURATION 95.9 % (94-98); ARTERIAL BLOOD PCO2 62.7 mmHg (35-45); ARTERIAL BLOOD PH 7.21 (7.35-7.45); ARTERIAL BLOOD PO2 97.6 mmHg (80-100); ARTERIAL BLOOD TOTAL CO2 26.5 mmol/L (21-25)
[2017-10-16 21:20] LABS: ARTERIAL BLOOD FIO2 50%
[2017-10-17] MEDS: IPRATROPIUM/ALBUTEROL 0.5-2.5 MG/3 ML AMPUL NEB SCH ×3 (01:39→13:01)
[2017-10-17] MEDS ORDERED: OLANZAPINE INJ/PF 10 MG SDV IM PRN (02:33)
[2017-10-17] MEDS ORDERED: OLANZAPINE INJ/PF 10 MG SDV IM ONE (03:03)
[2017-10-17 06:08] LABS: HEMATOCRIT 53.7 % (36.0-47.0); HEMOGLOBIN 17.2 g/dL (12.0-15.5); MEAN CORPUSCULAR HEMOGLOBIN 29.6 pg (27.0-33.4); MEAN CORPUSCULAR HGB CONC 32.1 g/dL (32.0-36.0); MEAN CORPUSCULAR VOLUME 92 fl (80-97); PLATELET COUNT 136 10^3/uL (150-450); RED BLOOD COUNT 5.83 10^6/uL (3.72-5.28); RED CELL DISTRIBUTION WIDTH 15.1 % (11.5-14.0); WHITE BLOOD COUNT 10.5 10^3/uL (4.0-10.5)
[2017-10-17 06:28] LABS: ABSOLUTE LYMPHOCYTES# (MANUAL) 0.2 10^3/uL (0.5-4.7); ABSOLUTE MONOCYTES # (MANUAL) 1.4 10^3/uL (0.1-1.4); ABSOLUTE NEUTROPHILS# (MANUAL) 8.9 10^3/uL (1.7-8.2); BASOPHILS % (MANUAL) 0 % (0-2); EOSINOPHILS % (MANUAL) 0 % (0-6); LYMPHOCYTES % (MANUAL) 2 % (13-45); MONOCYTES % (MANUAL) 13 % (3-13); SEGMENTED NEUTROPHILS % (MAN) 85 % (42-78); TOTAL CELLS COUNTED 100
[2017-10-17 06:29] LABS: ANISOCYTOSIS SLIGHT; BURR CELLS 1+; PLATELET COMMENT DECREASED; POIKILOCYTOSIS 1+
[2017-10-17] MEDS: HEPARIN SOD (PORCINE) 5,000 UNIT/ML 1 ML SYRINGE SUBCUT SCH ×3 (06:39→21:54)
[2017-10-17] MEDS: AMPICILLIN SODIUM/SULBACTAM NA 3 GM in NORMAL SALINE 100 ML IV SCH ×4 (06:43→23:20)
[2017-10-17 07:02] LABS: ARTERIAL BLOOD BASE EXCESS -2.2 mmol/L; ARTERIAL BLOOD H2CO3 2.14 mmol/L (1.05-1.35); ARTERIAL BLOOD HCO3 27.8 mmol/L (20-26); ARTERIAL BLOOD O2 SATURATION 97.6 % (94-98); ARTERIAL BLOOD PH 7.21 (7.35-7.45); ARTERIAL BLOOD PO2 122.4 mmHg (80-100)
[2017-10-17 07:03] LABS: ARTERIAL BLOOD FIO2 50%
[2017-10-17 07:05] LABS: ARTERIAL BLOOD PCO2 71.2 mmHg (35-45)
[2017-10-17 07:25] LABS: ALANINE AMINOTRANSFERASE 45 U/L (9-52); ALBUMIN 3.1 g/dL (3.5-5.0); ALKALINE PHOSPHATASE 59 U/L (38-126); ANION GAP 7 (5-19); ASPARTATE AMINO TRANSFERASE 39 U/L (14-36); BILIRUBIN,DIRECT 0.5 mg/dL (0.0-0.4); BILIRUBIN,TOTAL 0.5 mg/dL (0.2-1.3); BLOOD UREA NITROGEN 67 mg/dL (7-20); CALCIUM 9.9 mg/dL (8.4-10.2); CARBON DIOXIDE 30 mmol/L (22-30); CHLORIDE 111 mmol/L (98-107); GLUCOSE 109 mg/dL (75-110); POTASSIUM 4.8 mmol/L (3.6-5.0); SODIUM 148.3 mmol/L (137-145); TOTAL PROTEIN 5.5 g/dL (6.3-8.2)
[2017-10-17] MEDS ORDERED: METHYLPREDNISOLONE INJ 40 MG/1 ML SDV IV SCH (10:00)
[2017-10-17] MEDS ORDERED: DEXTROSE 5%-WATER 1000 ML 1,000 ML IV ONE (11:27)
[2017-10-17] MEDS ORDERED: LORAZEPAM INJ 2 MG/1 ML VIAL IV PRN (15:48)
--- NOTE | 2017-10-17 16:11 | PDOC PROGRESS REPORT ---
Subjective Progress Note for:: 10/17/17 Subjective:: Patient was seen 2 times today. First time patient was seen she had BiPAP in place. Second time patient was seen was when patient's grandson was at bedside. Patient did wake up move her arms look around. While speaking to the grandson he states that the family most likely will make patient DNR with comfort care. Received call from nurse this afternoon stating that family has made final decision to make patient DNR with comfort care. Requested that nurse contact Dr. Encinas so that he can be the second signature on family's request for DNR with comfort care. Reason For Visit: HYPERCALCEMIA, UTI, COPD EXACERBATION, Physical Exam Vital Signs: Temp Pulse Resp BP Pulse Ox 98.6 F 98 18 136/75 H 95 10/17/17 11:38 10/17/17 13:01 10/17/17 13:01 10/17/17 11:38 10/17/17 13:01 Pulse Oximeter Continuous Start: 10/16/17 17: 03 Freq: RTQ4 Status: Active Document 10/17/17 12:40 TPO (Rec: 10/17/17 12:43 TPO [email or web address]) Pulse Oximetry Assessment Oxygen Saturation (92-100) 95 Oxygen Delivery Method AVAP Fraction of Inspired Oxygen (FIO2) 40 Equipment Usage Equipment in Use Continuous SpO2 Machine # 2 Intake & Output 10/16/17 10/17/17 10/18/17 06:59 06:59 06:59 Intake Total 1000 600 Output Total 300 400 Balance 700 200 Weight 68.3 kg 71.4 kg General appearance: PRESENT: thin, well-developed Head exam: PRESENT: atraumatic, normocephalic Ear exam: PRESENT: normal external ear exam Mouth exam: PRESENT: moist, tongue midline Neck exam: ABSENT: carotid bruit, JVD, lymphadenopathy, thyromegaly Respiratory exam: PRESENT: decreased breath sounds. ABSENT: rales, rhonchi, wheezes Cardiovascular exam: PRESENT: RRR. ABSENT: diastolic murmur, rubs, systolic murmur Pulses: PRESENT: normal dorsalis pedis pul Vascular exam: PRESENT: normal capillary refill GI/Abdominal exam: PRESENT: normal bowel sounds, soft. ABSENT: distended, guarding, mass, organolmegaly, rebound, tenderness Rectal exam: PRESENT: deferred Extremities exam: ABSENT: calf tenderness, clubbing, pedal edema Neurological exam: PRESENT: other - Sleeping but arousable Skin exam: PRESENT: dry, intact, other - Was discoloration to patient's sole of feet bilaterally. ABSENT: cyanosis, rash Results Laboratory Results: 10/17/17 04:12 10/17/17 06:57 10/16/17 10/16/17 10/17/17 15:10 21:00 04:12 WBC 10.5 RBC 5.83 H Hgb 17.2 H Hct 53.7 H MCV 92 MCH 29.6 MCHC 32.1 RDW 15.1 H Plt Count 136 L Seg Neutrophils % Not Reportable Lymphocytes % Not Reportable Monocytes % Not Reportable Eosinophils % Not Reportable Basophils % Not Reportable Absolute Neutrophils Not Reportable Absolute Lymphocytes Not Reportable Absolute Monocytes Not Reportable Absolute Eosinophils Not Reportable Absolute Basophils Not Reportable Carbonic Acid 3.71 H 1.89 H HCO3/H2CO3 Ratio 7:1 13:1 ABG pH 6.98 L* 7.21 L ABG pCO2 123.3 H* 62.7 H ABG pO2 101.6 H 97.6 ABG HCO3 28.1 H 24.6 ABG O2 Saturation 92.8 L 95.9 ABG Base Excess -8.1 -4.7 FiO2 80% 50% Sodium Potassium Chloride Carbon Dioxide Anion Gap BUN Creatinine Est GFR ( Amer) Est GFR (Non-Af Amer) Glucose Calcium Total Bilirubin AST ALT Alkaline Phosphatase Total Protein Albumin 10/17/17 10/17/17 10/17/17 04:12 05:30 06:48 WBC RBC Hgb Hct MCV MCH MCHC RDW Plt Count Seg Neutrophils % Lymphocytes % Monocytes % Eosinophils % Basophils % Absolute Neutrophils Absolute Lymphocytes Absolute Monocytes Absolute Eosinophils Absolute Basophils Carbonic Acid Cancelled 2.14 H HCO3/H2CO3 Ratio Cancelled 12:1 ABG pH Cancelled 7.21 L ABG pCO2 Cancelled 71.2 H* ABG pO2 Cancelled 122.4 H ABG HCO3 Cancelled 27.8 H ABG O2 Saturation Cancelled 97.6 ABG Base Excess Cancelled -2.2 FiO2 Cancelled 50% Sodium Cancelled Potassium Cancelled Chloride Cancelled Carbon Dioxide Cancelled Anion Gap Cancelled BUN Cancelled Creatinine Cancelled Est GFR ( Amer) Cancelled Est GFR (Non-Af Amer) Cancelled Glucose Cancelled Calcium Cancelled Total Bilirubin Cancelled AST Cancelled ALT Cancelled Alkaline Phosphatase Cancelled Total Protein Cancelled Albumin Cancelled 10/17/17 06:57 WBC RBC Hgb Hct MCV MCH MCHC RDW Plt Count Seg Neutrophils % Lymphocytes % Monocytes % Eosinophils % Basophils % Absolute Neutrophils Absolute Lymphocytes Absolute Monocytes Absolute Eosinophils Absolute Basophils Carbonic Acid HCO3/H2CO3 Ratio ABG pH ABG pCO2 ABG pO2 ABG HCO3 ABG O2 Saturation ABG Base Excess FiO2 Sodium 148.3 H Potassium 4.8 Chloride 111 H Carbon Dioxide 30 Anion Gap 7 BUN 67 H Creatinine 1.49 H Est GFR ( Amer) 41 L Est GFR (Non-Af Amer) 34 L Glucose 109 Calcium 9.9 Total Bilirubin 0.5 AST 39 H ALT 45 Alkaline Phosphatase 59 Total Protein 5.5 L Albumin 3.1 L Impressions: Chest X-Ray 10/15/17 15:49 IMPRESSION: Lung changes with a known right suprahilar mass and with small bilateral pleural effusions. No parminder CHF KUB X-Ray 10/16/17 00:00 IMPRESSION: NG tube placement. Assessment & Plan - Diagnosis (1) Acute and chronic respiratory failure Qualifiers: Respiratory failure complication: hypoxia and hypercapnia Qualified Code(s) : J96.21 - Acute and chronic respiratory failure with hypoxia; J96.22 - Acute and chronic respiratory failure with hypercapnia; J96.22 - Acute and chronic respiratory failure with hypercapnia; J96.22 - Acute and chronic respiratory failure with hypercapnia Is this a current diagnosis for this admission?: Yes Plan: Secondary to CO2 narcosis: Family has requested to make patient DNR with comfort care. Patient written for morphine, Ativan, and scopolamine patch. Will consult hospice. (2) Dementia Is this a current diagnosis for this admission?: Yes Plan: Supportive care (3) Encephalopathy acute Is this a current diagnosis for this admission?: Yes Plan: Acute metabolic encephalopathy secondary to CO2 Narcosis: Family has requested to make patient DNR with comfort care. Morphine, Ativan, scopolamine patch have been ordered. Consult has been placed for hospice. (4) Hypercalcemia Is this a current diagnosis for this admission?: Yes Plan: Will continue to monitor. (5) COPD (chronic obstructive pulmonary disease) Is this a current diagnosis for this admission?: Yes Plan: Family has requested for pt to be DNR with comfort care. (6) Hypoxia Is this a current diagnosis for this admission?: Yes Plan: Secondary to Respiratory Failure: Family has requested for pt to be DNR with comfort care. - Time Time Spent with patient: 25-34 minutes
[2017-10-17] MEDS: MORPHINE SULFATE 10 MG/ML INJ IV PRN ×2 (16:48→20:12)
[2017-10-17] MEDS ORDERED: SCOPOLAMINE HYDROBROMIDE 1.5 MG PATCH.TD72 TD ONE (17:00)
[2017-10-17 17:42] VITALS: BP 138/63
[2017-10-18] MEDS: AMPICILLIN SODIUM/SULBACTAM NA 3 GM in NORMAL SALINE 100 ML IV SCH (05:06)
[2017-10-18] MEDS: HEPARIN SOD (PORCINE) 5,000 UNIT/ML 1 ML SYRINGE SUBCUT SCH (05:06)
--- NOTE | 2017-10-18 16:27 | Death Summary ---
Summary Date : 10/18/17 Time of :: 03:20 Autopsy: No Resuscitation Status: Comfort Measures Only Consulting Provider: Dr. Cheema - Final Diagnosis (1) Acute and chronic respiratory failure Is this a current diagnosis for this admission?: Yes (2) Dementia Is this a current diagnosis for this admission?: Yes (3) Encephalopathy acute Is this a current diagnosis for this admission?: Yes (4) Hypercalcemia Is this a current diagnosis for this admission?: Yes (5) COPD (chronic obstructive pulmonary disease) Is this a current diagnosis for this admission?: Yes (6) Hypoxia Is this a current diagnosis for this admission?: Yes Hospital Course:: Is a 77-year-old female who presented to our facility after being found unresponsive in her wheelchair. Patient had presented to the emergency room earlier due to changes in mental function. Patient was found to have an elevated CO2 of 98 on ABG. Patient was placed on BiPAP. Patient's blood glass did not improve and CO2 increased over 100. Pulmonary was consulted and adjusted patient's settings and patient CO2 decreased to 70 on ABG. Family decided to make patient comfort care due to patient not demonstrating any significant improvement. Patient became slightly dehydrated due to respiratory distress and creatinine did worsen slightly. Patient on 09/20/2017 at 0 3:20 AM
--- NOTE | 2017-10-21 17:47 | PDOC PROGRESS REPORT ---
Subjective Progress Note for:: 10/17/17 Subjective:: INTUBATED SEDATED Reason For Visit: HYPERCALCEMIA, UTI, COPD EXACERBATION, Physical Exam Vital Signs: Temp Pulse Resp BP Pulse Ox 98.4 F 101 H 16 138/63 H 95 10/17/17 15:13 10/17/17 15:13 10/17/17 15:13 10/17/17 15:13 10/17/17 15:13 Pulse Oximeter Continuous Start: 10/16/17 17: 03 Freq: RTQ4 Status: Complete Document 10/17/17 12:40 TPO (Rec: 10/17/17 12:43 TPO [email or web address]) Pulse Oximetry Assessment Oxygen Saturation (92-100) 95 Oxygen Delivery Method AVAP Fraction of Inspired Oxygen (FIO2) 40 Equipment Usage Equipment in Use Continuous SpO2 Machine # 2 Intake & Output 10/17/17 10/18/17 10/19/17 06:59 06:59 06:59 Intake Total 600 900 Output Total 400 525 Balance 200 375 Weight 71.4 kg General appearance: PRESENT: no acute distress, disheveled, thin. ABSENT: cooperative Head exam: PRESENT: atraumatic, normocephalic Eye exam: PRESENT: conjunctiva pale. ABSENT: EOMI, nystagmus, periorbital swelling, scleral icterus Mouth exam: PRESENT: dry mucosa, neck supple, tongue midline, other - et Neck exam: ABSENT: carotid bruit, JVD, lymphadenopathy, thyromegaly, tracheal deviation, tracheostomy Respiratory exam: PRESENT: decreased breath sounds, prolonged expiratory phas, rales, rhonchi, symmetrical, wheezes. ABSENT: retraction, stridor, tachypnea Cardiovascular exam: PRESENT: RRR, +S1, +S2 Pulses: PRESENT: normal radial pulses GI/Abdominal exam: PRESENT: diminished bowel sounds, soft Extremities exam: ABSENT: clubbing, joint swelling Musculoskeletal exam: ABSENT: deformity, dislocation Neurological exam: ABSENT: alert, awake, oriented to person Skin exam: PRESENT: dry, pallor Results Laboratory Results: 10/17/17 04:12 10/17/17 06:57 Impressions: Chest X-Ray 10/15/17 15:49 IMPRESSION: Lung changes with a known right suprahilar mass and with small bilateral pleural effusions. No parminder CHF KUB X-Ray 03/20/18 00:00 IMPRESSION: NG tube placement. Assessment & Plan - Diagnosis (1) Acute and chronic respiratory failure Qualifiers: Respiratory failure complication: hypoxia and hypercapnia Qualified Code(s) : J96.21 - Acute and chronic respiratory failure with hypoxia; J96.22 - Acute and chronic respiratory failure with hypercapnia; J96.22 - Acute and chronic respiratory failure with hypercapnia; J96.22 - Acute and chronic respiratory failure with hypercapnia Is this a current diagnosis for this admission?: Yes Plan: Profoundly acidotic and hypercapnic minimal response to noninvasive positive pressure ventilation (3) CHF (congestive heart failure) Qualifiers: Heart failure type: unspecified Heart failure chronicity: acute Qualified Code(s): I50.9 - Heart failure, unspecified Is this a current diagnosis for this admission?: Yes (4) Dementia Is this a current diagnosis for this admission?: Yes (5) COPD (chronic obstructive pulmonary disease) Is this a current diagnosis for this admission?: Yes - Time Total Critical Time (Minutes): 45
== END 2017-10-18 07:39 | DRG 189 ==
LOC: ER 15:26 → EH 20:01 → 4N 21:35
PROVIDERS: ADMIT Internal Medicine; ATTEND Internal Medicine
DX: J96.21 Acute and chronic respiratory failure with hypoxia (principal); G93.49 Other encephalopathy; E87.2 Acidosis; Z99.81 Dependence on supplemental oxygen; Z66 Do not resuscitate; E86.0 Dehydration; C34.90 Malignant neoplasm of unspecified part of unspecified bronchus or lung; E83.52 Hypercalcemia; I50.9 Heart failure, unspecified; I11.0 Hypertensive heart disease with heart failure; F03.90 Unspecified dementia, unspecified severity, without behavioral disturbance, psychotic disturbance, mood disturbance, and anxiety; N39.0 Urinary tract infection, site not specified; J96.22 Acute and chronic respiratory failure with hypercapnia; J44.9 Chronic obstructive pulmonary disease, unspecified; I87.8 Other specified disorders of veins; R23.8 Other skin changes; Z79.51 Long term (current) use of inhaled steroids; Z79.899 Other long term (current) drug therapy
CPT/HCPCS: 36415; 36600; 51702; 71045; 71046; 74018; 80048; 80053; 81001; 82550; 82803; 83605; 83880; 84443; 85025; 87086; 87088; 87186; 94640; 94660; 96365; 99285; J0295; J0696; J1644; J2060; J2270; J2920; J3489; J3490; J7030; J7060; J7620